=== PATIENT | male | born 1990 | race Two or more races ===

== ENCOUNTER 2017-01-20 00:35 | Emergency (ER) | payer SELFPAY ==
[~2017-01-20] VITALS: Ht 172.7 cm; Wt 79.4 kg
[2017-01-20] MEDS ORDERED: ONDA4TAB10 SL (01:19)
--- NOTE | 2017-01-20 01:19 | PHYS DOC ---
Past Medical History Past Medical History: No Pertinent History Past Surgical History: No Surgical History Alcohol Use: Occasionally Drug Use: None Adult General Chief Complaint Chief Complaint: SHORTNESS OF BREATH HPI HPI Patient is a 26 year old gentleman who presents here today complaining of cough cold congestion or sore throat shortness of breath times to 3 days as well as a penile discharge for approximately 3 months. Patient reports last sexual intercourse approximately 3 months ago with his ex-girlfriend. Patient has any fevers shakes chills nausea vomiting or diarrhea. Patient denies any testicular pain or discomfort. Patient denies any change in bowel or bladder habits. Patient does admit to dysuria. Constitutional: Denies fever or chills Eyes: Denies change in visual acuity, redness, or eye pain All other review systems are negative except as documented in the history of present illness portion. Constitutional: Well developed, well nourished, no acute distress, non-toxic appearance. HENT: Normocephalic, atraumatic, bilateral external ears normal, oropharynx moist, no oral exudates, nose normal. Eyes: PERRLA, EOMI, conjunctiva normal, no discharge. Neck: Normal range of motion, no tenderness, supple, no stridor. Cardiovascular:Heart rate regular rhythm, Lungs & Thorax: Bilateral breath sounds clear to auscultation Abdomen: Bowel sounds normal, soft, no tenderness, no masses, no pulsatile masses. Skin: Warm, dry, no erythema, no rash. Back: No tenderness, no CVA tenderness. Extremities: No tenderness, no cyanosis, no clubbing, ROM intact, no edema. Neurologic: Alert and oriented X 3, normal motor function, normal sensory function, no focal deficits noted. Psychologic: Affect normal, judgement normal, mood normal. Patient's ER physical exam is significant for a whitish yellow penile discharge with massage of his penis. Patient has no testicular tenderness. Assessment and plan This is a 18-year-old gentleman who presents to the ER today with dysuria. And a penile discharge. Patient also has cough cold congestion with URI symptoms. Patient's physical exam is unremarkable except for his penile discharge. Patient was given a shot of Rocephin as well as Zithromax to assist him with his discomfort and will be discharged home with instructions follow-up with primary care physician. Current Medications Current Medications Current Medications Medications (Trade) Dose Ordered Sig/Kg Start Time Stop Time Status Last Admin Dose Admin Azithromycin (Zithromax) 1,000 mg 1X ONCE 01/20/17 01:30 01/20/17 01:31 DC 01/20/17 01:29 1,000 MG Ceftriaxone Sodium (Rocephin Im) 250 mg 1X ONCE 01/20/17 01:30 01/20/17 01:31 DC 01/20/17 01:29 250 MG Ondansetron HCl (Zofran Odt) 4 mg 1X ONCE 01/20/17 01:30 01/20/17 01:31 DC 01/20/17 01:30 4 MG Allergies Allergies Allergies Coded Allergies Type Severity Reaction Last Updated Verified No Known Medication Allergies Allergy Unknown 01/20/17 Yes Current Patient Data Vital Signs Vital Signs Date Time Temp Pulse Resp B/P (MAP) Pulse Ox O2 Delivery O2 Flow Rate FiO2 01/20/17 01:37 69 16 140/94 (109) 98 Room Air 01/20/17 00:51 98.6 98.6 EKG EKG [] Radiology/Procedures Radiology/Procedures [] Course & Med Decision Making Course & Med Decision Making Pertinent Labs and Imaging studies reviewed. (See chart for details) [] Dragon Disclaimer Dragon Disclaimer This electronic medical record was generated, in whole or in part, using a voice recognition dictation system. Departure Departure Impression: Primary Impression: Sexually transmissible disease Additional Impressions: Urethritis Vomiting Sore throat Disposition: HOME, SELF-CARE Condition: IMPROVED Referrals: NO PCP (PCP) Patient Instructions: Nausea and Vomiting, Sexually Transmitted Disease Additional Instructions: Please follow up with your family doctor within one to 2 days for reevaluation. Scripts Ondansetron (ZOFRAN ODT) 4 Mg Tab.rapdis 1 TAB SL Q6HRS Y for NAUSEA, #12 TAB Prov: ODILON OAKES MD 01/20/17 Problem Qualifiers ODILON OAKES MD Jan 20, 2017 01:19
[2017-01-20] MEDS ORDERED: AZITHROMYCIN 250 MG TABLET. PO ONE (01:30)
[2017-01-20] MEDS ORDERED: ONDANSETRON ODT 4 MG TAB.RAPDIS. PO ONE (01:30)
[2017-01-20] MEDS ORDERED: cefTRIAXone IM 250 MG VIAL IM ONE (01:30)
[2017-01-20 01:37] VITALS: BP 140/94
== END 2017-01-20 01:44 | disposition home or self-care (01) ==
LOC: ER 00:35
DX: A64 Unspecified sexually transmitted disease (principal); N34.2 Other urethritis; R11.10 Vomiting, unspecified; J02.9 Acute pharyngitis, unspecified; R05 Cough; R09.81 Nasal congestion; R06.02 Shortness of breath
CPT/HCPCS: 96372; 99283; J0696; Q0144; Q0162